=== PATIENT | male | born 1995 | race Caucasian/White ===

== ENCOUNTER 2016-06-16 12:27 | Observation (INO) | payer SELFPAY ==
[2016-06-16 14:17] LABS: HEMOGLOBIN 14.5 gm/dl (14.0-17.5); RED BLOOD COUNT 4.64 M/UL (4.20-5.50); WHITE BLOOD COUNT 11.5 K/UL (4.5-11.0)
[2016-06-16 14:38] LABS: BUN/CREATININE RATIO 11 (0-10)
[2016-06-16] MEDS ORDERED: DOSS PO (17:28)
[2016-06-16] MEDS ORDERED: PHENERGAN 12.12.5 M1 PO (17:28)
[2016-06-16] MEDS ORDERED: KEFLEX500 MG PO (17:29)
[2016-06-16] MEDS ORDERED: NORCO 7.5-3251 EACH PO (17:29)
== END 2016-06-16 14:11 | disposition home or self-care (01) ==
LOC: ER1 12:27 → ZEROF 14:11
PROVIDERS: Specialist/Technologist Athletic Trainer; ADMIT Orthopaedic Surgery
PROC: 0HDQXZZ Extraction of Finger Nail, External Approach (ICD-10-PCS; 2016-06-16)
PROC: 0HDQXZZ Extraction of Finger Nail, External Approach (ICD-10-PCS; principal; 2016-06-16 13:00)
DX: S62.635A Displaced fracture of distal phalanx of left ring finger, initial encounter for closed fracture (principal); S62.633A Displaced fracture of distal phalanx of left middle finger, initial encounter for closed fracture; W23.1XXA Caught, crushed, jammed, or pinched between stationary objects, initial encounter
CPT/HCPCS: 73130; 80053; 85025; 85610; 96365; 96375; 99283; G0378; J0690; J1335; J1580; J2250; J2270; J2405; J3010; J7050; J7120